=== PATIENT | female | born 1990 | race Caucasian/White ===

== ENCOUNTER 2017-11-19 20:22 | Emergency (ER) | payer OTHER ==
[~2017-11-19] VITALS: Ht 167.6 cm; Wt 73.9 kg
[2017-11-19 20:55] VITALS: BP 143/111; Ht 167.6 cm; Wt 73.9 kg
== END 2017-11-19 22:02 | disposition left against medical advice (07) ==
LOC: ED 20:22
DX: Z53.21 Procedure and treatment not carried out due to patient leaving prior to being seen by health care provider (principal)

== ENCOUNTER 2018-01-07 07:01 | Emergency (ER) | payer OTHER ==
[~2018-01-07] VITALS: Ht 157.5 cm; Wt 70.3 kg
[2018-01-07 07:02] VITALS: BP 126/82; Ht 157.5 cm; Wt 70.3 kg
== END 2018-01-07 07:31 | disposition home or self-care (01) ==
LOC: ED 07:01
DX: J02.9 Acute pharyngitis, unspecified (principal); Z88.0 Allergy status to penicillin

== ENCOUNTER 2018-07-20 02:48 | Inpatient (IN) | payer OTHER ==
[~2018-07-20] VITALS: Ht 157.5 cm; Wt 72.6 kg
[2018-07-20 03:01] VITALS: Ht 157.5 cm; Wt 72.6 kg
[2018-07-20 03:59] LABS: PLATELET COUNT 358 x10^3mcL (130-400); RED CELL DISTRIBUTION WIDTH 13.8 % (11.5-14.5)
[2018-07-20 04:08] LABS: CALCIUM 8.3 mg/dL (8.5-10.1); CARBON DIOXIDE 26.2 mmol/L (21-32); CHLORIDE SERUM 102 mmol/L (98-107); CREATININE SERUM 0.9 mg/dL (0.6-1.0); GFR1 > 60 mL/min; GLUCOSE SERUM 120 mg/dL (74-106); POTASSIUM SERUM 3.2 mmol/L (3.5-5.1); SODIUM SERUM 136 mmol/L (136-145)
[2018-07-20 04:13] LABS: ALBUMIN 3.3 g/dL (3.4-5.0); ALKALINE PHOSPHATASE 90 U/L (46-116); ALT/SGPT 19 U/L (14-59); AST/SGOT 15 U/L (15-37); BAND NEUTROPHIL 13 % (0-10); BASOPHIL 0 % (0-2); BILIRUBIN TOTAL 0.5 mg/dL (0.20-1.00); MONOCYTE 6 % (0-7); SEGMENTED NEUTROPHILS 78 % (37-75); TOTAL PROTEIN, SERUM 7.5 g/dL (6.4-8.2)
[2018-07-20 04:14] LABS: rbc morphology (normal/abnorm) NORMAL (NORMAL)
[2018-07-20 04:15] LABS: PLATELET MORPHOLOGY PLATELETS NORMAL
[2018-07-20 05:24] LABS: UA SPECIFIC GRAVITY <=1.005 (1.005-1.035); microscopic required? YES; urine erythrocyte TRACE (NEGATIVE)
[2018-07-20 06:41] LABS: T3 TOTAL 0.78 ng/mL
[2018-07-20 06:52] LABS: FREE T4 1.21 ng/dL (0.76-1.46); FREE THYROXINE INDEX 2.6 ug/dL (1.4-4.5)
[2018-07-20 06:54] VITALS: BP 94/52
[2018-07-20 07:04] LABS: MAGNESIUM 1.6 mg/dL (1.8-2.4); PHOSPHOROUS 3.1 mg/dL (2.5-4.9)
[2018-07-20 07:04] LABS: AMPHETAMINE QUAL UR NONE DETECTED (See below)
[2018-07-20 07:08] LABS: CHOLESTEROL/HDL RATIO 2.7
[2018-07-20 07:52] VITALS: BP 94/52
[2018-07-20 09:19] VITALS: BP 99/59
[2018-07-20 16:02] VITALS: BP 98/58
[2018-07-20 20:38] VITALS: BP 104/61
[2018-07-21 05:31] VITALS: BP 103/55
[2018-07-21 06:29] LABS: PLATELET COUNT 286 x10^3mcL (130-400); RED CELL DISTRIBUTION WIDTH 14.4 % (11.5-14.5)
[2018-07-21 06:48] LABS: CALCIUM 7.6 mg/dL (8.5-10.1); CARBON DIOXIDE 26.4 mmol/L (21-32); CHLORIDE SERUM 107 mmol/L (98-107); CREATININE SERUM 0.9 mg/dL (0.6-1.0); GFR1 > 60 mL/min; GLUCOSE SERUM 97 mg/dL (74-106); MAGNESIUM 1.7 mg/dL (1.8-2.4); POTASSIUM SERUM 3.9 mmol/L (3.5-5.1); SODIUM SERUM 141 mmol/L (136-145)
[2018-07-21 09:41] VITALS: BP 103/67
[2018-07-21 11:26] LABS: BAND NEUTROPHIL 12 % (0-10); BASOPHIL 0 % (0-2); MONOCYTE 5 % (0-7); SEGMENTED NEUTROPHILS 74 % (37-75)
[2018-07-21 11:27] LABS: PLATELET MORPHOLOGY PLATELETS NORMAL; burr cell (echinocyte) 1+; rbc morphology (normal/abnorm) ABNORMAL (NORMAL)
[2018-07-21 17:05] VITALS: BP 111/68
[2018-07-21 20:37] VITALS: BP 117/65
[2018-07-22 05:25] VITALS: BP 126/83
[2018-07-22 06:14] LABS: PLATELET COUNT 359 x10^3mcL (130-400); RED CELL DISTRIBUTION WIDTH 13.1 % (11.5-14.5)
[2018-07-22 06:36] LABS: CALCIUM 7.8 mg/dL (8.5-10.1); CARBON DIOXIDE 26.2 mmol/L (21-32); CHLORIDE SERUM 107 mmol/L (98-107); CREATININE SERUM 0.8 mg/dL (0.6-1.0); GFR1 > 60 mL/min; GLUCOSE SERUM 100 mg/dL (74-106); MAGNESIUM 1.7 mg/dL (1.8-2.4); POTASSIUM SERUM 3.6 mmol/L (3.5-5.1); SODIUM SERUM 142 mmol/L (136-145)
[2018-07-22 08:57] VITALS: BP 132/83
[2018-07-22 12:58] LABS: ATYPICAL LYMPH 1 %; BAND NEUTROPHIL 2 % (0-10); BASOPHIL 0 % (0-2); MONOCYTE 2 % (0-7); SEGMENTED NEUTROPHILS 89 % (37-75)
[2018-07-22 12:59] LABS: PLATELET MORPHOLOGY PLATELETS NORMAL; rbc morphology (normal/abnorm) NORMAL (NORMAL)
[2018-07-22] MEDS ORDERED: LEVAQUIN750 MG PO (14:26)
[2018-07-22] MEDS ORDERED: ATIVAN0.5 M1 PO (14:27)
[2018-07-22] MEDS ORDERED: NORCO1 TA2 PO (14:28)
== END 2018-07-22 16:46 | disposition home or self-care (01) | DRG 871 ==
LOC: ED 02:48 → MU 05:56
PROVIDERS: Emergency Medicine; Family Medicine
DX: A41.9 Sepsis, unspecified organism (principal); N17.0 Acute kidney failure with tubular necrosis; E44.1 Mild protein-calorie malnutrition; N12 Tubulo-interstitial nephritis, not specified as acute or chronic; E87.6 Hypokalemia; E83.42 Hypomagnesemia; R80.9 Proteinuria, unspecified; Z68.28 Body mass index [BMI] 28.0-28.9, adult; B96.20 Unspecified Escherichia coli [E. coli] as the cause of diseases classified elsewhere
CPT/HCPCS: 83880; 84439; 87804; J1885; J1956; J2270; J2405; J7030; Q0092